=== PATIENT | male | born 1995 | race Caucasian/White ===

== ENCOUNTER 2017-06-17 13:00 | Emergency (ER) | payer SELFPAY ==
[2017-06-17] MEDS ORDERED: SODIUM CHLORIDE 0.9% 1,000 ML IV ONE ×2 (13:08)
[2017-06-17] MEDS ORDERED: EPINEPHrine HCL 1 MG/1 ML AMP SC ONE (13:15)
[2017-06-17] MEDS ORDERED: methylPREDNISolone SOD SUCC 125 MG/2 ML VL IV ONE (13:15)
[2017-06-17 14:26] LABS: Albumin 3.6 g/dL (3.4-5.0); BUN/Creatinine Ratio 8.7; Calcium 8.4 mg/dL (8.5-10.1); Potassium 3.2 mmol/L (3.5-5.1)
[2017-06-17] MEDS ORDERED: KETOROLAC TROMETH 30 MG/ML 1ML VIAL IV ONE (14:30)
[2017-06-17 14:35] LABS: Bilirubin, Total 0.5 mg/dL (0.2-1.0); Total Protein 7.1 g/dL (6.4-8.2)
[2017-06-17 14:51] LABS: Basophils # (auto) 0 uL; Eosinophils # (auto) 0 uL; Lymphocytes # (auto) 1.8 uL; Monocytes # (auto) 0.8 uL; Neutrophils # (auto) 20.8 uL; Red Cell Distribution Width 13.4 % (11.8-14.3); White Blood Cell 23.4 10^3/uL (4.4-10.8)
[2017-06-17 14:53] LABS: Eosinophils % (auto) 0.1 % (0.0-7.0); Hematocrit 51.4 % (41.0-53.0); Hemoglobin 17.4 g/dL (13.5-17.5); Lymphocytes % (auto) 7.6 % (10.0-50.0); Mean Corpuscular Hemoglobin 28.6 pg (28.0-32.0); Mean Corpuscular Hgb Conc. 33.9 g/dL (32.0-36.0); Mean Corpuscular Volume 84.3 fL (80.0-100.0); Monocytes % (auto) 3.3 % (0.0-12.0); Nucleated Red Blood Cells % 0.3 %; Platelet Count (auto) 202 10^3/uL (140-450); Red Blood Cells 6.09 10^6/uL (4.5-5.90)
[2017-06-17 15:45] VITALS: BP 118/69
== END 2017-06-17 15:49 | disposition home or self-care (01) ==
LOC: ER 13:00
DX: T78.40XA Allergy, unspecified, initial encounter (principal)
CPT/HCPCS: 36415; 71045; 80053; 85025; 96361; 96372; 96374; 96375; 99285; J0171; J1885; J2930; J7030; 93005

== ENCOUNTER 2017-07-02 08:02 | Emergency (ER) | payer SELFPAY ==
[~2017-07-02] VITALS: Ht 177.8 cm; Wt 65.8 kg
[2017-07-02 08:15] VITALS: BP 107/69
[2017-07-02] MEDS ORDERED: cefTRIAXone SOD 1,000 MG VL IM ONE (08:45)
== END 2017-07-02 08:58 | disposition home or self-care (01) ==
LOC: ER 08:06
DX: K04.7 Periapical abscess without sinus (principal); Z88.1 Allergy status to other antibiotic agents
CPT/HCPCS: 96372; 99283; J0696

== ENCOUNTER 2018-02-23 11:24 | Emergency (ER) | payer SELFPAY ==
[~2018-02-23] VITALS: Ht 177.8 cm; Wt 59.0 kg
[2018-02-23] MEDS ORDERED: ASPirin 81 mg TAB PO ONE (11:45)
[2018-02-23 12:31] VITALS: BP 124/86
[2018-02-23 12:32] LABS: Basophils # (auto) 0.1 uL; Basophils % (auto) 0.9 % (0.0-2.0); Eosinophils # (auto) 0.1 uL; Eosinophils % (auto) 0.9 % (0.0-7.0); Hematocrit 47.4 % (41.0-53.0); Hemoglobin 16.1 g/dL (13.5-17.5); Lymphocytes # (auto) 1.7 uL; Lymphocytes % (auto) 26.8 % (10.0-50.0); Mean Corpuscular Hemoglobin 29.3 pg (28.0-32.0); Mean Corpuscular Hgb Conc. 33.9 g/dL (32.0-36.0); Mean Corpuscular Volume 86.4 fL (80.0-100.0); Monocytes # (auto) 0.5 uL; Monocytes % (auto) 8.3 % (0.0-12.0); Neutrophils % (auto) 63.1 % (37.0-80.0); Platelet Count (auto) 237 10^3/uL (140-450); Red Blood Cells 5.49 10^6/uL (4.5-5.90); Red Cell Distribution Width 13.3 % (11.8-14.3); White Blood Cell 6.3 10^3/uL (4.4-10.8)
[2018-02-23 12:50] LABS: Albumin 4.2 g/dL (3.4-5.0); Anion Gap 3 (5-15); Blood Urea Nitrogen 14 mg/dL (7-18); Calcium 9.1 mg/dL (8.5-10.1); Carbon Dioxide 28 mmol/L (21-32); Chloride 108 mmol/L (98-107); Glucose 101 mg/dL (74-106); Potassium 3.9 mmol/L (3.5-5.1); Sodium 139 mmol/L (136-145)
[2018-02-23 12:51] LABS: Urine Bacteria NONE SEEN /hpf (None Seen); Urine Blood Negative /uL (Negative); Urine Specific Gravity 1.007 (1.001-1.035); Urine WBC <1 /hpf (0 - 3)
[2018-02-23 12:57] LABS: Alanine Aminotransferase 16 U/L (16-61); Alkaline Phosphatase 77 U/L (45-117); Aspartate Aminotransferase 6 U/L (15-37); BUN/Creatinine Ratio 16.3; Bilirubin, Total 0.4 mg/dL (0.2-1.0); GFR African American 142 mL/min; GFR Non-African American 117 mL/min; Total Protein 8.1 g/dL (6.4-8.2)
== END 2018-02-23 14:27 | disposition left against medical advice (07) ==
LOC: ER 11:46
DX: R07.89 Other chest pain (principal); F17.210 Nicotine dependence, cigarettes, uncomplicated; F12.10 Cannabis abuse, uncomplicated; Z88.1 Allergy status to other antibiotic agents
CPT/HCPCS: 36415; 71045; 80053; 81001; 84484; 85025; 93005

== ENCOUNTER 2019-01-31 09:42 | Emergency (ER) | payer BC, OTHER ==
[~2019-01-31] VITALS: Ht 177.8 cm; Wt 61.2 kg
[2019-01-31 09:49] VITALS: BP 145/76
== END 2019-01-31 10:52 | disposition home or self-care (01) ==
LOC: ER 09:42
DX: S61.402D Unspecified open wound of left hand, subsequent encounter (principal); F17.210 Nicotine dependence, cigarettes, uncomplicated; F12.10 Cannabis abuse, uncomplicated; Z88.1 Allergy status to other antibiotic agents; X58.XXXD Exposure to other specified factors, subsequent encounter
CPT/HCPCS: 73130

== ENCOUNTER 2021-05-30 22:11 | Emergency (ER) | payer SELFPAY ==
[~2021-05-30] VITALS: Ht 177.8 cm; Wt 2.4 kg
[2021-05-30 22:13] VITALS: BP 121/81
[2021-05-31] MEDS ORDERED: DexAMETHasone SOD PHOS 10MG/1ML VIAL INJ IM ONE (00:15)
== END 2021-05-31 00:51 | disposition left against medical advice (07) ==
LOC: ER 22:14
DX: R06.02 Shortness of breath (principal); Z53.21 Procedure and treatment not carried out due to patient leaving prior to being seen by health care provider

== ENCOUNTER 2024-03-17 05:47 | Emergency (ER) | payer BC ==
[~2024-03-17] VITALS: Ht 175.3 cm; Wt 68.2 kg
--- NOTE | 2024-03-17 06:45 | ED.PDOC ---
HPI Comments 28 y/o M, presents to the ED for CC of chest pain. Patient states, that he has been experiencing intermittent substernal chest pain which radiates to his neck xmonths. Patient relays, pain to be pressure like with associated bilateral arm numbness. Patient smokes tobacco, denies illicit drug usage, or ETOH consumption. Patient denies shortness of breath, fever, dizziness, or N/V/D. Chief Complaint: Chest Pain Time Seen by MD: 06:30 Primary Care Provider: NONE Reviewed Notes: Nurses Notes, Medications, Allergies Allergies: Coded Allergies: Amoxicillin (Verified Allergy, Severe, 06/17/17) Penicillins (Verified Allergy, Unknown, 03/17/24) Home Meds Active Scripts Lorazepam (ATIVAN TABLET) 0.5 Mg Tb, 1 TAB PO DAILY for 5 Days, #5 TAB Prov:ALEXANDREA FIELDS MD 03/17/24 Information Source: Patient Mode of Arrival: Ambulatory Severity: Mild Timing: Months Duration: Intermittent Prehospital treatment: None Location: Substernal Radiation: Neck Quality: Pressure Onset: At Rest Cardiac Risk Factors: Smoker PE Risk Factors: None History of: None Modifying Factors: Nothing Associated Signs and Symptoms: None Past Medical History PAST MEDICAL HISTORY: Denies Surgical History: Denies all surgeries Family History Family History: Unknown Social History Smoker: Cigarettes Alcohol: Denies ETOH Use Drugs: Marijuana Lives In: Home Constitutional: denies: chills, diaphoresis, fatigue, fever, malaise, sweats, weakness, others EENTM: denies: blurred vision, double vision, ear bleeding, ear discharge, ear drainage, ear pain, ear ringing, eye pain, eye redness, hearing loss, mouth pain, mouth swelling, nasal discharge, nose bleeding, nose congestion, nose pain, photophobia, tearing, throat pain, throat swelling, voice changes, others Respiratory: denies: cough, hemoptysis, orthopnea, SOB at rest, shortness of breath, SOB with excertion, stridor, wheezing, others Cardiovascular: reports: chest pain; denies: dizzy spells, diaphoresis, Dyspnea on exertion, edema, irregular heart beat, left arm pain, lightheadedness, palpi tations, PND, syncope, others Gastrointestinal: denies: abdomen distended, abdominal pain, blood streaked bowels, constipated, diarrhea, dysphagia, difficulty swallowing, hematemesis, melena, nausea, poor appetite, poor fluid intake, rectal bleeding, rectal pain, vomiting, others Genitourinary: denies: burning, dysuria, flank pain, frequency, hematuria, incontinence, penile discharge, penile sore, pain, testicle pain, testicle swelling, urgency, others Neurological: reports: numbness; denies: dizziness, fainting, headache, left sided numbness, left sided weakness, paresthesia, pre-existing deficit, right sided numbness, right sided weakness, seizure, speech problems, tingling, tremors, weakness, others Musculoskeletal: reports: neck pain; denies: back pain, gout, joint pain, joint swelling, muscle pain, muscle stiffness, others Integumetry: denies: bruises, change in color, change in hair/nails, dryness, laceration, lesions, lumps, rash, wounds, others Allergic/Immunocompromised: denies: Difficulty Healing, Frequent Infections, Hives, Itching, others Hematologic/Lymphatic: denies: anemia, blood clots, easy bleeding, easy bruising, swollen glands, others Endocrine: denies: excessive hunger, excessive sweating, excessive thirst, excessive urination, flushing, intolerance to cold, intolerance to heat, unexplained weight gain, unexplained weight loss, others Psychiatric: denies: anxiety, bipolar disorder, depression, hopeless, panic disorder, schizophrenia, sleepless, suicidal, others All Other Systems: Reviewed and Negative Physical Exam General Appearance: Moderate Distress HEENT: Normal ENT Inspection, Pharynx Normal, TMs Normal Neck: Full Range of Motion, Non-Tender, Normal, Normal Inspection Respiratory: Chest Non-Tender, Lungs Clear, No Accessory Muscle Use, No Respiratory Distress, Normal Breath Sounds Cardiovascular: No Edema, No JVD, No Murmur, No Gallop, Normal Peripheral Pulses, Regular Rate/Rhythm Breast Exam: Deferred Gastrointestinal: No Organomegaly, Non Tender, No Pulsatile Mass, Normal Bowel Sounds, Soft Genitalia: Deferred Pelvic: Deferred Rectal: Deferred Extremities: No calf tenderness, Normal capillary refill, Normal inspection, Normal range of motion, Non-tender, No pedal edema Musculoskeletal : Apperance: Normal Neurologic: Alert, payroll technician II-XII nml as Tested, No Motor Deficits, Normal Affect, Normal Mood, No Sensory Deficits Cerebellar Function: Normal Reflexes: Normal Skin: Dry, Normal Color, Warm Peripheral Pulses: 3+ Radial (R), 3+ Radial (L) Lymphatic: No Adenopathy Was a procedure done? Was a procedure done?: No CP Differential Dx Differential Diagnosis: A-fib, A-Flutter, Angina, Anxiety / Panic Attack, Atrial Dysrhythmia, Electrolyte Disorder Differential Diagnosis: Chest Wall Pain, Cholelithiasis, Costochondritis X-Ray, Labs, Meds, VS Vital Signs Date Time Temp Pulse Resp B/P (MAP) Pulse Ox O2 Delivery O2 Flow Rate FiO2 03/17/24 08:09 Room Air* 0 21 03/17/24 07:48 98.1 60 17 152/85 (107) 99 98.1 03/17/24 05:57 51 03/17/24 05:56 98.2 58 16 166/91 (116) 99 Lab Test 03/17/24 07:03 03/17/24 06:00 Range/Units Troponin I High Sensitivity 11 11 </=54 ng/L D-Dimer, Quantitative 0.30 0.0-0.49 mg/L FEU Current Medications Medications (Trade) Dose Ordered Sig/Bartolo Route Start Time Stop Time Status Last Admin Aspirin 325 mg ONCE ONCE PO 03/17/24 06:45 03/17/24 06:46 DC 03/17/24 08:06 Patient alert. Complaining of chest discomfort. Vitals stable. Answering all questions. No sign of distress. Possible anxiety. Saturation pristine on room air. Blood pressure slightly elevated possibly from anxiety. No sign of any injuries. EKG reviewed does not show any acute changes. No leg swelling. No calf tenderness. D-dimer within normal limits. Cardiac marker within normal limits. Blood pressure slowly normalizing. Explained to the patient. Was told follow up with his primary care physician. Was told to come back if there is any problem. Time of 1ST Reevaluation: 07:00 Reevaluation 1ST: Unchanged Time of 2ND Reevaluation: 08:16 Reevaluation 2ND: Improved Patient Education/Counseling: Diagnosis, Treatment Family Education/Counseling: No Family Present Departure 1 Departure Time of Disposition: 06:52 Impression: Primary Impression: HTN (hypertension) Qualified Codes: I10 - Essential (primary) hypertension Additional Impressions: Musculoskeletal chest pain Anxiety Disposition: 01 HOME / SELF CARE / HOMELESS Condition: Good e-Prescriptions Lorazepam (ATIVAN TABLET) 0.5 Mg Tb 1 TAB PO DAILY for 5 Days, #5 TAB Prov: ALEXANDREA FIELDS MD 03/17/24 Discharged With: Self Critical Care Note Critical Care Time?: No Stability Stability form required: No Heart Score Heart Score: Heart Score Response (Comments) Value History N/A 0 EKG N/A 0 Age N/A 0 Risk Factors N/A 0 Troponin N/A 0 Total 0 I personally scribed for ALEXANDREA FIELDS MD ([email or web address]) on 03/17/24 at 06:45. Electronically submitted by Fany Farrar ([email or web address]). ALEXANDREA FIELDS MD Mar 17, 2024 06:45
[2024-03-17 07:48] VITALS: BP 152/85; PULSE 60; RESP 17; TEMP 98.1; O2SAT 99
[2024-03-17] MEDS: ASPirin 325 MG TAB PO ONE (08:06)
[2024-03-17] MEDS ORDERED: LORA-1121 PO (08:17)
--- NOTE | 2024-03-18 12:16 | ECG ---
[facility] Test Date: 2024-03-17 Test Time: 05:57:33 Pat Name: CHAU BOWMAN Department: ED Room: Gender: Mobile U[employer] Developer: : 1995 Requested By: JESSY NESS Order Number: [id number] Reading MD: Kenny Payan Measurements Intervals [place] Rate: 51 P: 74 VT: 124 QRS: 84 QRSD: 92 T: 59 QT: 450 QTc: 415 Interpretive Statements Sinus rhythm Baseline wander in lead(s) V3 Electronically Signed On 03-18-2024 13:20:48 PST by Kenny Payan Please click the below link to view image of tracing.
== END 2024-03-17 08:30 | disposition home or self-care (01) ==
LOC: ER 05:47
DX: F41.9 Anxiety disorder, unspecified (principal); I10 Essential (primary) hypertension; R07.89 Other chest pain; F17.210 Nicotine dependence, cigarettes, uncomplicated; Z88.0 Allergy status to penicillin
CPT/HCPCS: 36415; 84484; 85379; 93005